=== PATIENT | female | born 1985 | race Caucasian/White ===

== ENCOUNTER 2018-03-16 12:59 | Emergency (ER) | payer MEDICAID, OTHER ==
[2018-03-16 13:07] VITALS: BMI 46.2
[2018-03-16 13:09] VITALS: BP 108/74; PULSE 76; RESP 18; TEMP 97.3; O2SAT 95
[2018-03-16] MEDS ORDERED: TDAP Vaccine 0.5 mL Syr IM ONE (13:20)
--- NOTE | 2018-03-16 13:25 | ED PDOC ---
Addendum entered and electronically signed by Birdie Desai PA 03/17/18 10:54: Addendum Addendum: 03/17/18 10:54 Just to be able to sign Original Note: Arrival/HPI - General Historian: Patient - History of Present Illness Narrative History of Present Illness (Text): 03/16/18 13:21 32yo female in ED for excoriation to her left forearm. 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 Notes that she is not up to date with her TD booster. States she irrigated the area and reports burning pain to the area. Denies any other complaint. <Birdie Desai A - Last Filed: 03/16/18 13:21> <Daphne Jacob - Last Filed: 03/16/18 17:42> - General Chief Complaint: Abnormal Skin Integrity Time Seen by Provider: 03/16/18 13:09 Past Medical History - Provider Review Nursing Documentation Reviewed: Yes - Infectious Disease Hx of Infectious Diseases: None - Past Medical History Past Medical History: No Previous - Pulmonary Hx Asthma: Yes - Psychiatric Hx Depression: No Hx Emotional Abuse: No Hx Physical Abuse: No Hx Substance Use: No - Surgical History Hx Section: Yes (x3) Hx Tubal Ligation: Yes - Anesthesia Hx Anesthesia: Yes Hx Anesthesia Reactions: No Hx Malignant Hyperthermia: No - Suicidal Assessment Feels Threatened In Home Enviroment: No <Birdie Desai - Last Filed: 03/16/18 13:21> Family/Social History - Physician Review Nursing Documentation Reviewed: Yes Family/Social History: Unknown Family HX Smoking Status: Heavy Smoker > 10 Cigarettes Daily Hx Alcohol Use: No Hx Substance Use: No <Birdie Desai - Last Filed: 03/16/18 13:21> Allergies/Home Meds <Birdie Desai A - Last Filed: 03/16/18 13:21> <Daphne Jacob A - Last Filed: 03/16/18 17:42> Allergies/Adverse Reactions: Allergies latex Allergy (Verified 03/16/18 13:06) RASH Review of Systems - Physician Review All systems were reviewed & negative as marked: Yes - Review of Systems Constitutional: Normal Eyes: Normal ENT: Normal Respiratory: Normal Cardiovascular: Normal Gastrointestinal: Normal Genitourinary Female: Normal Musculoskeletal: Normal Skin: Other (Excoriation to left arm) Neurological: Normal Endocrine: Normal Hemo/Lymphatic: Normal Psychiatric: Normal <DirBirdie sloan A - Last Filed: 03/16/18 13:21> Physical Exam Vital Signs Reviewed: Yes Vital Signs Temp Pulse Resp BP Pulse Ox 03/16/18 13:09 97.3 F L 76 18 108/74 95 Temperature: Afebrile Blood Pressure: Normal Pulse: Regular Respiratory Rate: Normal Appearance: Positive for: Well-Appearing, Non-Toxic, Comfortable Pain Distress: None Mental Status: Positive for: Alert and Oriented X 3 - Systems Exam Head: Present: Atraumatic, Normocephalic Pupils: Present: PERRL Extroacular Muscles: Present: EOMI Conjunctiva: Present: Normal Mouth: Present: Moist Mucous Membranes Neck: Present: Normal Range of Motion Respiratory/Chest: Present: Clear to Auscultation, Good Air Exchange. No: Respiratory Distress, Accessory Muscle Use Cardiovascular: Present: Regular Rate and Rhythm, Normal S1, S2. No: Murmurs Abdomen: No: Tenderness, Distention, Peritoneal Signs Back: Present: Normal Inspection Upper Extremity: Present: Normal Inspection. No: Cyanosis, Edema Lower Extremity: Present: Normal Inspection. No: Edema Neurological: Present: GCS=15, CN II-XII Intact, Speech Normal Skin: Present: Warm, Dry, Normal Color, Other (3 linear excoriations noted on left distal posterior forearm). No: Rashes Psychiatric: Present: Alert, Oriented x 3, Normal Insight, Normal Concentration <Birdie Desai A - Last Filed: 03/16/18 13:21> Vital Signs Temp Pulse Resp BP Pulse Ox 03/16/18 13:09 97.3 F L 76 18 108/74 95 <Daphne Jacob A - Last Filed: 03/16/18 17:42> Medical Decision Making ED Course and Treatment: 03/16/18 13:26 Pt in ED for stated history. Her TD booster is up dated Excoriations cleaned with betadine and bacitracine applied Hepatitis panel and HIV ordered PT offered antivairal, prophylactically and she declined Referred to the Employee health - Medication Orders Current Medication Orders: Tetanus/Reduced Diphtheria/Acell Pertussis (Boostrix Vaccine Inj) 0.5 ml IM .ONCE ONE Stop: 03/16/18 13:21 <Birdie Desai A - Last Filed: 03/16/18 13:21> - Lab Interpretations Lab Results: Lab Results 03/16/18 13:50: HIV-1 Ab Rapid Screen Non reactive 03/16/18 13:50: Hepatitis A IgM Ab Negative, Hep Bs Antigen Negative, Hep B Core IgM Ab Negative, Hepatitis C Antibody Negative - Medication Orders Current Medication Orders: Discontinued Medications Tetanus/Reduced Diphtheria/Acell Pertussis (Boostrix Vaccine Inj) 0.5 ml IM .ONCE ONE Stop: 03/16/18 13:21 Last Admin: 03/16/18 13:52 Dose: 0.5 ml Immunization Registry Document 03/16/18 13:52 [place] (Rec: 03/16/18 13:53 LA [id number]) [facility]-Date provided 03/16/18 MAR Immunization Data Document 03/16/18 13:52 G[facility] (Rec: 03/16/18 13:53 LA [id number]) Immunization Data Vaccine Information Sheet Given Yes <Daphne Jacob - Last Filed: 03/16/18 17:42> - 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 <Daphne Jacob - Last Filed: 03/16/18 17:42> Disposition/Present on Arrival - Present on Arrival Any Indicators Present on Arrival: No History of DVT/PE: No History of Uncontrolled Diabetes: No Urinary Catheter: No History of Decub. Ulcer: No History Surgical Site Infection Following: None - Disposition Have Diagnosis and Disposition been Completed?: Yes Disposition Time: 13:35 Patient Plan: Discharge <Birdie Desai A - Last Filed: 03/16/18 13:21> <Daphne Jacob - Last Filed: 03/16/18 17:42> - Disposition Diagnosis: Excoriation Disposition: HOME/ ROUTINE Condition: STABLE Discharge Instructions (ExitCare): Skin Abrasions, Wound Care (DC) Additional Instructions: [facility] Employee Regarding your Work Related Injury, you are instructed to do all of the following by next day: 1. Notify [facility] Employee Health Department of the sustained injury and arrange for any follow-up appointments if needed during the next business day. If the office is closed or no answer is received, please leave a detailed voice message. Message should include your full name, department and dispatch manager, date of injury, date of ED visit if applicable. Employee Health can be reached at [phone]. 2. If there is time lost, notify [facility] Human Resources Department of the work related injury the next business day at [phone]. Follow up with the employee health Keep wound clean and dry return to ED for any new or worsening symptoms Prescriptions: RX: Bacitracin 15 gm TP BID #1 oint...g. Referrals: Fernanda Betancourt MD [Medical Doctor] - Follow up with primary Forms: [employer] (Yakut)
[2018-03-16 16:48] LABS: HEPATITIS B SURFACE AG Negative (NEGATIVE)
[2018-03-16 16:54] LABS: HEPATITIS A IGM NEGATIVE (NEGATIVE); HEPATITIS B CORE AB NEGATIVE (NEGATIVE)
[2018-03-16 17:05] LABS: HEPATITIS C ANTIBODY NEGATIVE (NEGATIVE)
== END 2018-03-16 13:53 | disposition home or self-care (01) ==
LOC: ED 12:59
DX: S50.812A Abrasion of left forearm, initial encounter (principal); Y93.F9 Activity, other caregiving; Y92.238 Other place in hospital as the place of occurrence of the external cause; Y99.0 Civilian activity done for income or pay; Z23 Encounter for immunization

== ENCOUNTER 2018-06-28 11:16 | Emergency (ER) | payer OTHER ==
[2018-06-28 11:16] VITALS: BMI 46.2
--- NOTE | 2018-06-28 12:04 | ED PDOC ---
Arrival/HPI - General Chief Complaint: Upper Extremity Problem/Injury Time Seen by Provider: 06/28/18 11:53 Historian: Patient - History of Present Illness Narrative History of Present Illness (Text): 06/28/18 11:59 33yo female with no pmhx who present with complaint of left shoulder pain x6days. States she lifts all the time at work and not sure if she injured her shoulder. Notes pain is with abduction of her left arm. Did not take any medication for the pain. denies chest pain, SOB, paresthesia, focal weakness, any other complaint. Past Medical History - Provider Review Nursing Documentation Reviewed: Yes - Infectious Disease Hx of Infectious Diseases: None - Reproductive Currently : No - Past Medical History Past Medical History: No Previous - Pulmonary Hx Asthma: Yes - Psychiatric Hx Depression: No Hx Emotional Abuse: No Hx Physical Abuse: No Hx Substance Use: No - Surgical History Hx Section: Yes (x3) Hx Tubal Ligation: Yes - Anesthesia Hx Anesthesia: Yes Hx Anesthesia Reactions: No Hx Malignant Hyperthermia: No - Suicidal Assessment Feels Threatened In Home Enviroment: No Family/Social History - Physician Review Nursing Documentation Reviewed: Yes Family/Social History: Unknown Family HX Smoking Status: Former Smoker Hx Alcohol Use: No Hx Substance Use: No Allergies/Home Meds Allergies/Adverse Reactions: Allergies latex Allergy (Verified 03/16/18 13:06) RASH Review of Systems - Physician Review All systems were reviewed & negative as marked: Yes - Review of Systems Constitutional: Normal Eyes: Normal ENT: Normal Respiratory: Normal Cardiovascular: Normal Gastrointestinal: Normal Genitourinary Female: Normal Musculoskeletal: Arthralgias (Left shoulder pain) Skin: Normal Neurological: Normal Endocrine: Normal Hemo/Lymphatic: Normal Psychiatric: Normal Physical Exam Vital Signs Reviewed: Yes Vital Signs Temp Pulse Resp BP Pulse Ox 06/28/18 11:16 98.3 F 78 18 121/85 97 Temperature: Afebrile Blood Pressure: Normal Pulse: Regular Respiratory Rate: Normal Appearance: Positive for: Well-Appearing, Non-Toxic, Comfortable Pain Distress: None Mental Status: Positive for: Alert and Oriented X 3 - Systems Exam Head: Present: Atraumatic, Normocephalic Pupils: Present: PERRL Extroacular Muscles: Present: EOMI Conjunctiva: Present: Normal Mouth: Present: Moist Mucous Membranes Neck: Present: Normal Range of Motion Respiratory/Chest: Present: Clear to Auscultation, Good Air Exchange. No: Re spiratory Distress, Accessory Muscle Use Cardiovascular: Present: Regular Rate and Rhythm, Normal S1, S2. No: Murmurs Abdomen: No: Tenderness, Distention, Peritoneal Signs Back: Present: Normal Inspection Upper Extremity: Present: NORMAL PULSES, Tenderness (Left shoulder), Neurovascularly Intact. No: Cyanosis, Edema, Normal ROM (Limited on abduction up to 90degree), Deformity Lower Extremity: Present: Normal Inspection. No: Edema Neurological: Present: GCS=15, CN II-XII Intact, Speech Normal Skin: Present: Warm, Dry, Normal Color. No: Rashes Psychiatric: Present: Alert, Oriented x 3, Normal Insight, Normal Concentration Medical Decision Making ED Course and Treatment: 06/28/18 13:30 PT in ED for stated history Left shoulder xray - Calcification noted. No acute process Result was DW the pt.she was referred to ortho. Tramadol /ibuprofen given for pain relieve. - RAD Interpretation Radiology Orders: 06/28/18 11:58 SHOULDER LEFT [RAD] Stat Disposition/Present on Arrival - Present on Arrival Any Indicators Present on Arrival: No History of DVT/PE: No History of Uncontrolled Diabetes: No Urinary Catheter: No History of Decub. Ulcer: No History Surgical Site Infection Following: None - Disposition Have Diagnosis and Disposition been Completed?: Yes Diagnosis: Calcific tendinitis Disposition: HOME/ ROUTINE Disposition Time: 13:35 Patient Plan: Discharge Condition: STABLE Discharge Instructions (ExitCare): Tendonitis (DC) Additional Instructions: Follow up with your doctor/orthopedist Return to ED for any new or worsening symptoms Prescriptions: RX: Ibuprofen [Motrin Tab] 600 mg PO Q6 #15 tab RX: traMADol [Ultram] 50 mg PO TID #9 tab Referrals: FAMILY PROVIDER,NO [Primary Care Provider] - Follow up with primary Orestes Whitt MD [Staff Provider] - Follow up with primary Forms: [employer] (Persian), WORK NOTE
[2018-06-28 13:58] VITALS: BP 130/82; PULSE 83; RESP 19; TEMP 98.2; O2SAT 99
--- NOTE | 2018-06-28 14:10 | RAD ---
Date of service: 06/28/2018 PROCEDURE: Radiographs of the Left Shoulder HISTORY: shoulder pain COMPARISON: No prior. FINDINGS: BONES: Normal. No fracture. JOINTS: Normal. Glenohumeral and acromioclavicular joints preserved. No osteoarthritis. SOFT TISSUES: Globular calcification adjacent to the greater tuberosity consistent with calcific tendinitis. OTHER FINDINGS: None. IMPRESSION: Calcific tendinitis.
== END 2018-06-28 13:55 | disposition home or self-care (01) ==
LOC: ED 11:16
DX: M75.32 Calcific tendinitis of left shoulder (principal)
CPT/HCPCS: 73030; 81025; 96372; 99284; J1885